=== PATIENT | male | born 1970 | race Caucasian/White ===

== ENCOUNTER 2021-12-26 08:33 | Emergency (ER) | payer MEDICAID ==
[~2021-12-26] VITALS: Ht 190.5 cm; Wt 95.5 kg
[2021-12-26 08:49] VITALS: BP 124/85
[2021-12-26] MEDS ORDERED: KETOROLAC TROMETH 60MG/2ML VIAL IM ONE (09:15)
[2021-12-26] MEDS ORDERED: IBUP800T27 PO (09:45)
== END 2021-12-26 09:49 | disposition home or self-care (01) ==
LOC: ER 08:33
DX: S83.92XA Sprain of unspecified site of left knee, initial encounter (principal); Z79.1 Long term (current) use of non-steroidal anti-inflammatories (NSAID); X50.1XXA Overexertion from prolonged static or awkward postures, initial encounter; Y93.89 Activity, other specified; Y92.89 Other specified places as the place of occurrence of the external cause; Y99.8 Other external cause status
CPT/HCPCS: 73562; 96372; 99283; J1885